=== PATIENT | female | born 1990 | race Two or more races ===

== ENCOUNTER 2018-04-11 07:18 | Outpatient (CLI) | payer OTHER | END 2018-04-11 07:27 | disposition home or self-care (01) | LOC: LAB 07:18 | DX: E03.8 Other specified hypothyroidism (principal) ==

== ENCOUNTER 2018-04-15 08:15 | Outpatient (CLI) | payer OTHER | END 2018-04-15 08:25 | disposition home or self-care (01) | LOC: SONOGRAMA 08:15 | DX: E03.8 Other specified hypothyroidism (principal); R10.9 Unspecified abdominal pain ==

== ENCOUNTER 2018-04-29 07:45 | Outpatient (CLI) | payer OTHER | END 2018-04-29 08:08 | disposition home or self-care (01) | LOC: LAB 07:45 | DX: Z13.0 Encounter for screening for diseases of the blood and blood-forming organs and certain disorders involving the immune mechanism (principal); R52 Pain, unspecified; R51 Headache; J20.8 Acute bronchitis due to other specified organisms; J10.89 Influenza due to other identified influenza virus with other manifestations ==

== ENCOUNTER → 2018-06-26 08:31 | Outpatient (CLI) | payer OTHER | END | disposition home or self-care (01) | LOC: LAB 08:31 | DX: Z31.430 Encounter of female for testing for genetic disease carrier status for procreative management (principal); Z31.5 Encounter for procreative genetic counseling; O09.892 Supervision of other high risk pregnancies, second trimester ==

== ENCOUNTER 2018-08-04 20:49 | Outpatient (CLI) | payer OTHER | END 2018-08-07 15:25 | disposition home or self-care (01) | LOC: OBS/DEL 20:49 | DX: O47.02 False labor before 37 completed weeks of gestation, second trimester (principal); O23.32 Infections of other parts of urinary tract in pregnancy, second trimester; Z34.82 Encounter for supervision of other normal pregnancy, second trimester ==

== ENCOUNTER 2018-09-02 08:20 | Outpatient (CLI) | payer OTHER | END 2018-09-02 08:55 | disposition home or self-care (01) | LOC: LAB 08:20 | DX: O09.892 Supervision of other high risk pregnancies, second trimester (principal) ==

== ENCOUNTER 2018-09-02 08:37 | Outpatient (CLI) | payer OTHER | END 2018-09-02 08:40 | disposition home or self-care (01) | LOC: SONOGRAMA 08:37 | DX: Z3A.25 25 weeks gestation of pregnancy (principal); Z34.93 Encounter for supervision of normal pregnancy, unspecified, third trimester ==

== ENCOUNTER 2018-10-07 10:07 | Outpatient (CLI) | payer OTHER | END 2018-10-07 10:15 | disposition home or self-care (01) | LOC: LAB 10:07 | DX: D50.8 Other iron deficiency anemias (principal); O99.012 Anemia complicating pregnancy, second trimester ==

== ENCOUNTER 2018-10-28 08:40 | Outpatient (CLI) | payer OTHER | END 2018-10-28 08:56 | disposition home or self-care (01) | LOC: LAB 08:40 | DX: O09.892 Supervision of other high risk pregnancies, second trimester (principal); E03.8 Other specified hypothyroidism ==

== ENCOUNTER 2018-11-08 07:44 | Outpatient (CLI) | payer OTHER | END 2018-11-08 07:51 | disposition home or self-care (01) | LOC: LAB 07:44 | DX: D50.8 Other iron deficiency anemias (principal); O99.013 Anemia complicating pregnancy, third trimester ==

== ENCOUNTER 2018-11-15 10:19 | Inpatient (IN) | payer OTHER ==
[~2018-11-15] VITALS: Ht 149.9 cm; Wt 60.3 kg
[2018-11-15] MEDS ORDERED: SYNTHROID100 MCG PO (11:36)
[2018-11-15] MEDS ORDERED: IRON325 MG PO (11:37)
[2018-11-15] MEDS ORDERED: PRENATAL TABLE1 EAC4 PO (11:37)
== END 2018-11-17 09:01 | DRG 807 ==
LOC: OB/GYN 10:19 → LDR 10:19 → OB/GYN 16:49
PROVIDERS: ADMIT Obstetrics & Gynecology
PROC: 10E0XZZ Delivery of Products of Conception, External Approach (ICD-10-PCS; principal; 2018-11-15)
PROC: 3E0P7VZ Introduction of Hormone into Female Reproductive, Via Natural or Artificial Opening (ICD-10-PCS; 2018-11-15)
PROC: 3E033VJ Introduction of Other Hormone into Peripheral Vein, Percutaneous Approach (ICD-10-PCS; 2018-11-15)
PROC: 4A1HXCZ Monitoring of Products of Conception, Cardiac Rate, External Approach (ICD-10-PCS; 2018-11-15)
DX: O42.913 Preterm premature rupture of membranes, unspecified as to length of time between rupture and onset of labor, third trimester (principal); Z37.0 Single live birth; Z3A.36 36 weeks gestation of pregnancy; O99.283 Endocrine, nutritional and metabolic diseases complicating pregnancy, third trimester; E03.8 Other specified hypothyroidism

== ENCOUNTER 2019-01-29 13:38 | Emergency (ER) | payer OTHER ==
[~2019-01-29] VITALS: Ht 149.9 cm; Wt 58.1 kg
[~2019-01-29 13:38] MED LIST: IRON325 MG PO; PRENATAL TABLE1 EAC4 PO; SYNTHROID100 MCG PO
== END 2019-01-29 19:11 | disposition home or self-care (01) ==
LOC: ER 13:38
DX: K80.20 Calculus of gallbladder without cholecystitis without obstruction (principal)

== ENCOUNTER 2019-02-12 15:47 | Emergency (ER) | payer OTHER ==
[~2019-02-12] VITALS: Ht 149.9 cm; Wt 56.7 kg
== END 2019-02-12 21:30 | disposition home or self-care (01) ==
LOC: ER 15:47
DX: K80.20 Calculus of gallbladder without cholecystitis without obstruction (principal)

== ENCOUNTER → 2022-08-06 08:00 | Outpatient (CLI) | payer OTHER | END | disposition home or self-care (01) | LOC: LAB 08:00 → ADM 10:45 → CIR.AMB 08-12 10:45 → EDSTATUS 08-26 10:45 → CIR.AMB 08-26 10:45 | PROVIDERS: ATTEND Internal Medicine Gastroenterology | DX: Z11.52 Encounter for screening for COVID-19 (principal); Z20.822 Contact with and (suspected) exposure to COVID-19; Z20.828 Contact with and (suspected) exposure to other viral communicable diseases ==

== ENCOUNTER 2022-09-23 05:45 | Day surgery (SDC) | payer OTHER | END 2022-09-23 17:00 | disposition home or self-care (01) | LOC: CIR.AMB 05:45 → AMB-ENDOS 07:00 → CIR.AMB 17:00 | PROVIDERS: ATTEND Internal Medicine Gastroenterology | DX: K80.50 Calculus of bile duct without cholangitis or cholecystitis without obstruction (principal); K80.20 Calculus of gallbladder without cholecystitis without obstruction; E03.9 Hypothyroidism, unspecified; Z20.822 Contact with and (suspected) exposure to COVID-19 ==

== ENCOUNTER 2023-07-05 08:11 | Outpatient (CLI) | payer OTHER ==
[2023-07-05 09:43] LABS: URINE APPEARANCE Clear; URINE BILIRRUBIN Negative (NEGATIVE); URINE BLOOD Trace; URINE COLOR Yellow; URINE GLUCOSE Negative (NEGATIVE); URINE LEUKOCYTE Moderate; URINE NITRATE Negative; URINE PROTEIN Negative (NEGATIVE); URINE UROBILINOGEN 0.2 E.U./dl
[2023-07-05 09:45] LABS: HEMATOCRIT 25.8 % (36.0-45.00); MEAN CORPUSCULAR HGB CONC 30.5 g/dl (32.0-36.0); RED BLOOD COUNT 4.51 M/uL (4.00-6.00); RED CELL DISTRIBUTION WIDTH 20.2 % (11.5-14.5)
[2023-07-05 09:46] LABS: URINE BACTERIA 453.5 uL (0.0-1933); URINE EPITHELIAL CELLS 21.9 uL (0.0-38.8); URINE RBC 6.3 uL (0.0-20.8); URINE WBC 14.2 uL (0.0-23.2)
[2023-07-05 10:43] LABS: ALBUMIN 3.8 gm/dL (3.4-5.0); BILIRUBIN TOTAL 0.38 mg/dL (0.3-1.2); CREATININE SERUM 0.84 mg/dL (0.55-1.02); GFR 77.16; GLOBULINA 4.5 G/DL (2.4-3.5); PHOSPHOROUS 5.5 mg/dL (2.5-4.9); POTASSIUM 3.77 mEq/L (3.5-5.1); TOTAL PROTEIN 8.3 gm/dL (6.4-8.2)
[2023-07-05 10:44] LABS: T4 FREE 1.84 NG/ML (0.76-1.46)
[2023-07-05 10:45] LABS: TSH 0.289 uIU/mL (0.358-3.74)
[2023-07-05 12:00] LABS: MEAN CELL VOLUME 57.2 fL (80.00-100.00); MEAN CORPUSCULAR HEMOGLOBIN 17.5 pg (27.00-32.0)
[2023-07-05 12:03] LABS: HEMOGLOBIN 7.9 g/dL (12.0-15.00)
[2023-07-05 12:04] LABS: PLATELET COUNT 579 K/uL (150-450)
== END 2023-07-05 08:13 | disposition home or self-care (01) ==
LOC: LAB 08:11
PROVIDERS: ATTEND General Practice
DX: R42 Dizziness and giddiness (principal); R51.9 Headache, unspecified; Z13.1 Encounter for screening for diabetes mellitus; Z13.220 Encounter for screening for lipoid disorders; Z13.228 Encounter for screening for other metabolic disorders; D64.9 Anemia, unspecified; Z11.3 Encounter for screening for infections with a predominantly sexual mode of transmission; E89.0 Postprocedural hypothyroidism

== ENCOUNTER 2023-07-05 09:49 | Outpatient (CLI) | payer OTHER | END 2023-07-05 10:04 | disposition home or self-care (01) | LOC: RAD 09:49 | PROVIDERS: ATTEND General Practice | DX: D64.9 Anemia, unspecified (principal); R53.1 Weakness; R42 Dizziness and giddiness; R51.9 Headache, unspecified; K80.00 Calculus of gallbladder with acute cholecystitis without obstruction ==

== ENCOUNTER 2024-07-18 12:20 | Outpatient (CLI) | payer OTHER ==
[2024-07-19] MEDS ORDERED: SYNTHROID88 MCG (13:05)
== END 2024-07-18 12:39 | disposition home or self-care (01) ==
LOC: MAMO-SONO 12:20
DX: Z12.31 Encounter for screening mammogram for malignant neoplasm of breast (principal); Z80.3 Family history of malignant neoplasm of breast; E03.9 Hypothyroidism, unspecified; Z90.89 Acquired absence of other organs; D64.9 Anemia, unspecified; Z13.21 Encounter for screening for nutritional disorder; Z13.1 Encounter for screening for diabetes mellitus; Z13.220 Encounter for screening for lipoid disorders; Z13.89 Encounter for screening for other disorder; E78.5 Hyperlipidemia, unspecified; K80.80 Other cholelithiasis without obstruction; R10.2 Pelvic and perineal pain; R10.9 Unspecified abdominal pain

== ENCOUNTER → 2024-07-19 08:56 | Outpatient (CLI) | payer OTHER ==
[~2024-07-19 08:56] MED LIST changes: +SYNTHROID88 MCG
[2024-07-19 09:56] LABS: HEMATOCRIT 24.4 % (36.0-45.00); MEAN CORPUSCULAR HGB CONC 30.8 g/dl (32.0-36.0); PLATELET COUNT 495 K/uL (150-450); RED BLOOD COUNT 4.24 M/uL (4.00-6.00); RED CELL DISTRIBUTION WIDTH 19.5 % (11.5-14.5)
[2024-07-19 10:08] LABS: HEMOGLOBIN 7.5 g/dL (12.0-15.00); MEAN CELL VOLUME 57.5 fL (80.00-100.00); MEAN CORPUSCULAR HEMOGLOBIN 17.6 pg (27.00-32.0)
[2024-07-19 10:16] LABS: PH,URINE 6.5 (5.0-8.0); URINE APPEARANCE Clear; URINE BILIRRUBIN Negative (NEGATIVE); URINE BLOOD Negative; URINE COLOR Yellow; URINE GLUCOSE Negative (NEGATIVE); URINE KETONE Negative (NEGATIVE); URINE LEUKOCYTE Trace; URINE NITRATE Negative; URINE PROTEIN Negative (NEGATIVE); URINE UROBILINOGEN 0.2 E.U./dl
[2024-07-19 10:21] LABS: URINE BACTERIA 200.3 uL (0.0-1933); URINE EPITHELIAL CELLS 4.9 uL (0.0-38.8); URINE WBC 4.4 uL (0.0-23.2)
[2024-07-19 10:24] LABS: URINE RBC 1.2 uL (0.0-20.8)
[2024-07-19 11:09] LABS: BILIRUBIN TOTAL 0.42 mg/dL (0.3-1.2); CALCIUM 6.6 mg/dL (8.5-10.1); CHOL HDL RATIO 5.3 (0-5.0); CREATININE SERUM 0.74 mg/dL (0.55-1.02); GFR 88.8; POTASSIUM 3.67 mEq/L (3.5-5.1); T4 TOTAL 11.14 UG/DL (4.8-13.9)
[2024-07-19 11:33] LABS: FERRITIN 3.6 NG/ML (8-252); TSH 6.58 uIU/mL (0.358-3.74)
[2024-07-19 12:10] LABS: FOLIC ACID 11.18 ng/ml (4.78-20); T3 TOTAL 0.93 ng/ml (0.846-2.02); VITAMIN D3 25 HYDROXY 26.58 ng/ml (30-120)
[2024-07-19 13:57] LABS: ob NEGATIVE (NEGATIVE)
[2024-07-20 08:06] LABS: hav igm Negative (Negative); hcv Non Reactive (Non Reactive); hep b c Negative (Negative); hep b s ag Negative (Negative)
== END | disposition home or self-care (01) ==
LOC: LAB 08:56
DX: E03.9 Hypothyroidism, unspecified (principal); Z11.3 Encounter for screening for infections with a predominantly sexual mode of transmission; Z12.31 Encounter for screening mammogram for malignant neoplasm of breast; Z13.21 Encounter for screening for nutritional disorder; Z13.1 Encounter for screening for diabetes mellitus; Z13.220 Encounter for screening for lipoid disorders; Z13.89 Encounter for screening for other disorder; E78.5 Hyperlipidemia, unspecified; Z12.11 Encounter for screening for malignant neoplasm of colon; K80.80 Other cholelithiasis without obstruction

== ENCOUNTER 2024-07-19 12:21 | Emergency (ER) | payer OTHER ==
[~2024-07-19] VITALS: Ht 149.9 cm; Wt 65.3 kg
[~2024-07-19 12:21] MED LIST changes: -SYNTHROID88 MCG
[2024-07-19 13:05] VITALS: BP 121/81; O2SAT 100
[2024-07-19] MEDS ORDERED: SYNTHROID88 MCG (13:05)
[2024-07-19] MEDS ORDERED: 0.9 % SODIUM CHLORIDE 1,000 ML IV STA (13:09)
[2024-07-19 13:30] LABS: HEMATOCRIT 24.7 % (36.0-45.00); MEAN CORPUSCULAR HGB CONC 31.3 g/dl (32.0-36.0); PLATELET COUNT 532 K/uL (150-450); RED BLOOD COUNT 4.33 M/uL (4.00-6.00); RED CELL DISTRIBUTION WIDTH 19.4 % (11.5-14.5)
[2024-07-19 13:31] LABS: HEMOGLOBIN 7.7 g/dL (12.0-15.00); MEAN CELL VOLUME 57.1 fL (80.00-100.00); MEAN CORPUSCULAR HEMOGLOBIN 17.7 pg (27.00-32.0)
[2024-07-19 13:46] LABS: CALCIUM 6.8 mg/dL (8.5-10.1); CREATININE SERUM 0.87 mg/dL (0.55-1.02); GFR 73.67; POTASSIUM 3.43 mEq/L (3.5-5.1)
[2024-07-19 14:05] LABS: INR 1.05; PARTIAL THROMBOPLASTIN TIME 28.8 SECONDS (22.0-34.0); PROTHROMBIN TIME 11.4 SECONDS (9.0-11.5)
== END 2024-07-19 19:46 | disposition home or self-care (01) ==
LOC: ER 12:23
PROVIDERS: Emergency Medicine
DX: D64.9 Anemia, unspecified (principal); E03.9 Hypothyroidism, unspecified